=== PATIENT | male | born 1990 | race Caucasian/White ===

== ENCOUNTER 2017-09-08 20:17 | Emergency (ER) | payer MEDICAID ==
[~2017-09-08] VITALS: Ht 182.9 cm; Wt 105.0 kg
[2017-09-08 20:49] VITALS: BP 133/82
[2017-09-09] MEDS ORDERED: METOCLOPRAMIDE 10MG/10 ML UDC PO ONE (01:00)
[2017-09-09] MEDS ORDERED: KETOROLAC 60MG/2ML VIAL IM ONE (01:00)
[2017-09-09 02:13] LABS: *AMPHETAMINES SCREEN URINE PRESUMTIVE POSITIVE (NEGATIVE); *BARBITURATES SCREEN URINE NEGATIVE (NEGATIVE); *BENZODIAZEPINES SCREEN URINE NEGATIVE (NEGATIVE); *COCAINE SCREEN URINE NEGATIVE (NEGATIVE); CANNABINOID URINE SCREEN PRESUMTIVE POSITIVE (NEGATIVE); METHADONE URINE SCREEN NEGATIVE (NEGATIVE); OPIATES URINE SCREEN PRESUMTIVE POSITIVE (NEGATIVE); PHENCYCLIDINE URINE SCREEN NEGATIVE (NEGATIVE)
== END 2017-09-09 02:49 | disposition home or self-care (01) ==
LOC: ER 20:17
DX: R51 Headache (principal); F12.10 Cannabis abuse, uncomplicated; M32.9 Systemic lupus erythematosus, unspecified; F17.200 Nicotine dependence, unspecified, uncomplicated
CPT/HCPCS: 80305; 96372; 99283; J1885; J8597

== ENCOUNTER 2017-10-09 02:18 | Emergency (ER) | payer MEDICAID ==
[~2017-10-09] VITALS: Ht 182.9 cm; Wt 106.0 kg
[2017-10-09 02:36] VITALS: BP 118/55
== END 2017-10-09 07:37 | disposition left against medical advice (07) ==
LOC: ER 02:18
DX: Z53.21 Procedure and treatment not carried out due to patient leaving prior to being seen by health care provider (principal)

== ENCOUNTER 2018-01-05 17:54 | Emergency (ER) | payer MEDICAID ==
[~2018-01-05] VITALS: Ht 180.3 cm; Wt 105.0 kg
[2018-01-05 18:49] LABS: BASOPHILS % 0.3 % (0.0-2.0); EOSINOPHILS % 1.1 % (0.0-5.0); HEMATOCRIT. 35.7 % (42.0-52.0); HEMOGLOBIN. 12.1 g/dL (14.0-18.0); LYMPHOCYTES % 13.4 % (20.0-50.0); MONOCYTES % 7.6 % (2.0-8.0); NEUTROPHILS % 77.6 % (40.0-76.0); PLATELET 335 x1000/uL (130-400); RED BLOOD CELL COUNT 4.46 mill/uL (4.7-6.1); RED CELL DISTRIBUTION WIDTH 14.6 % (11.6-14.6)
[2018-01-05 18:57] LABS: CHLORIDE 102 mEq/L (98-107)
[2018-01-05 19:02] LABS: INR 1.1; PROTHROMBIN TIME 11.8 sec (9.4-11.6)
[2018-01-05 20:33] LABS: CLARITY URINE CLOUDY (CLEAR); COLOR URINE DARK YELLOW (YELLOW); KETONES URINE TRACE (NEGATIVE); LEUKOCYTE ESTERASE URINE 2+ (NEGATIVE); NITRITE URINE NEGATIVE (NEGATIVE); OCCULT BLOOD URINE NEGATIVE (NEGATIVE); PROTEIN URINE TRACE (NEGATIVE); SPECIFIC GRAVITY URINE 1.037 (1.005-1.030)
[2018-01-05 20:47] LABS: *AMPHETAMINES SCREEN URINE PRESUMTIVE POSITIVE (NEGATIVE); *BARBITURATES SCREEN URINE NEGATIVE (NEGATIVE); *BENZODIAZEPINES SCREEN URINE NEGATIVE (NEGATIVE); *COCAINE SCREEN URINE NEGATIVE (NEGATIVE); CANNABINOID URINE SCREEN PRESUMTIVE POSITIVE (NEGATIVE); METHADONE URINE SCREEN NEGATIVE (NEGATIVE); OPIATES URINE SCREEN PRESUMTIVE POSITIVE (NEGATIVE); PHENCYCLIDINE URINE SCREEN NEGATIVE (NEGATIVE)
[2018-01-05] MEDS ORDERED: SODIUM CHLORIDE 0.9% 1,000 ML IV ONE (22:01)
[2018-01-05] MEDS ORDERED: KETOROLAC 30MG/ML VIAL IV STA (22:01)
[2018-01-05] MEDS ORDERED: CEFTRIAXONE 1 G PREMIX 50 ML IV ONE (23:00)
[2018-01-05] MEDS ORDERED: IOHEXOL-300 100 ML BOTTLE ONE (23:53)
[2018-01-06] MEDS ORDERED: LIDOCAINE HCL 1% 20ML VIAL (Pyxis) INJ MC ONE (01:00)
[2018-01-06] MEDS ORDERED: LIDOCAINE HCL/EPINEPHRINE 1%-EPI 1:100,000 30 ML VIAL INFIL ONE (01:00)
[2018-01-06] MEDS ORDERED: LIDOCAINE HCL/EPINEPHRINE 1%-EPI 1:100,000 20 ML VIAL INFIL ONE ×2 (01:00)
[2018-01-06] MEDS ORDERED: LIDOCAINE HCL/EPINEPHRINE 1%-EPI 1:100,000 50 ML VIAL INFIL ONE (01:00)
[2018-01-06] MEDS ORDERED: LIDOCAINE HCL 1%/EPI 1:200,000 30 ML VIAL MC ONE (01:00)
[2018-01-06] MEDS ORDERED: SULFAMETHOXAZOLE/TRIMETHOPRIM 800/160MG TABLET PO ONE (01:00)
[2018-01-06] MEDS ORDERED: HYDROCODONE/ACETAMINOPHEN 5/325MG TABLET PO ONE ×3 (01:00→01:45)
[2018-01-06 02:55] VITALS: BP 112/55
== END 2018-01-06 03:50 | disposition home or self-care (01) ==
LOC: ER 18:25
DX: L03.314 Cellulitis of groin (principal); M32.9 Systemic lupus erythematosus, unspecified; F17.200 Nicotine dependence, unspecified, uncomplicated; N30.00 Acute cystitis without hematuria; B35.6 Tinea cruris; N49.2 Inflammatory disorders of scrotum; F12.10 Cannabis abuse, uncomplicated; Z90.49 Acquired absence of other specified parts of digestive tract
CPT/HCPCS: 10060; 36415; 74177; 80053; 80305; 81003; 83605; 83690; 85025; 85610; 87040; 96361; 96365; 96366; 96375; 99285; J0696; J1885; J3490; J7030; Q9967

== ENCOUNTER 2018-01-08 14:56 | Emergency (ER) | payer MEDICAID ==
[~2018-01-08] VITALS: Ht 180.3 cm; Wt 92.0 kg
[2018-01-08] MEDS ORDERED: KETOROLAC 60MG/2ML VIAL IM ONE (18:30)
[2018-01-08] MEDS ORDERED: CEFTRIAXONE SODIUM 250 MG/VIAL IM ONE (18:30)
[2018-01-08] MEDS ORDERED: LIDOCAINE HCL 1% 20ML VIAL (Pyxis) INJ MC ONE (18:45)
[2018-01-08] MEDS ORDERED: LIDOCAINE HCL/PF 1% 10 MG/ML 5ML VIAL IJ ONE (19:00)
[2018-01-08 19:08] VITALS: BP 117/68
== END 2018-01-08 19:14 | disposition home or self-care (01) ==
LOC: ER 14:56
DX: Z48.00 Encounter for change or removal of nonsurgical wound dressing (principal)
CPT/HCPCS: 96372; 99284; J0696; J1885; J3490

== ENCOUNTER 2019-03-21 16:13 | Emergency (ER) | payer MEDICAID ==
[~2019-03-21] VITALS: Ht 180.3 cm; Wt 100.0 kg
[2019-03-21] MEDS ORDERED: IBUPROFEN 800MG TABLET PO ONE (19:45)
[2019-03-21] MEDS ORDERED: HYDROCODONE/ACETAMINOPHEN 5/325MG TABLET PO ONE (21:00)
[2019-03-21] MEDS ORDERED: SODIUM CHLORIDE 0.9% 1,000 ML IV ONE (21:16)
[2019-03-21] MEDS ORDERED: CLINDAMYCIN 900 MG in DEXTROSE 5% WATER 50 ML IV ONE (21:30)
[2019-03-21 22:58] LABS: BASOPHILS % 0.5 % (0.0-2.0); EOSINOPHILS % 2.2 % (0.0-5.0); HEMATOCRIT. 35.5 % (42.0-52.0); LYMPHOCYTES % 25.2 % (20.0-50.0); MEAN CORPUSCULAR HEMOGLOBIN 26.8 pg (28.0-32.0); MEAN CORPUSCULAR VOLUME 79.5 fL (80.0-94.0); MEAN PLATELET VOLUME 7.5 fl (7.4-10.4); MONOCYTES % 10.1 % (2.0-8.0); PLATELET 305 x1000/uL (130-400); RED BLOOD CELL COUNT 4.47 mill/uL (4.7-6.1); RED CELL DISTRIBUTION WIDTH 14.7 % (11.6-14.6)
[2019-03-21 23:03] LABS: CHLORIDE 105 mEq/L (98-107)
[2019-03-22] MEDS ORDERED: PIPERACILLIN SODIUM/TAZOBACTAM 4.5 G in DEXT 5% WATER 100 ML IV SCH (09:00)
[2019-03-22 09:10] VITALS: BP 118/66
== END 2019-03-22 09:43 | disposition left against medical advice (07) ==
LOC: ER 16:56
DX: M65.841 Other synovitis and tenosynovitis, right hand (principal); F12.10 Cannabis abuse, uncomplicated; M19.90 Unspecified osteoarthritis, unspecified site; L93.2 Other local lupus erythematosus; F17.200 Nicotine dependence, unspecified, uncomplicated
CPT/HCPCS: 36415; 73140; 80053; 83605; 85025; 93005; 96365; 96366; 99284; J2543; J3490; J7030; J7060; Z7610

== ENCOUNTER 2020-02-28 21:37 | Emergency (ER) | payer MEDICAID, OTHER ==
[~2020-02-28] VITALS: Ht 172.7 cm; Wt 78.0 kg
[2020-02-28 22:57] VITALS: BP 123/71
== END 2020-02-28 22:58 | disposition home or self-care (01) ==
LOC: ER 21:37
DX: F11.10 Opioid abuse, uncomplicated (principal); F12.10 Cannabis abuse, uncomplicated
CPT/HCPCS: 82962; 93005; 99283

== ENCOUNTER 2022-07-10 22:08 | Emergency (ER) | payer MEDICAID ==
[~2022-07-10] VITALS: Ht 185.4 cm; Wt 91.0 kg
[2022-07-10] MEDS ORDERED: LIDOCAINE HCL/EPINEPHRINE 1%-EPI 1:100,000 20 ML VIAL INFIL ONE (22:45)
[2022-07-10] MEDS ORDERED: CEFAZOLIN 1000MG PREMIX 50 ML IV ONE (22:45)
[2022-07-10] MEDS ORDERED: MORPHINE SULFATE 4 MG/ML CPJ (NOT FOR IM USE) IV ONE (22:45)
[2022-07-10] MEDS ORDERED: SODIUM CHLORIDE 0.9% 1,000 ML IV ONE (22:45)
[2022-07-10] MEDS ORDERED: TETANUS, DIPHTHERIA, PERTUSSIS VAC/PF 0.5ML (>10YR OLD) IM ONE (22:45)
[2022-07-10] MEDS ORDERED: ONDANSETRON HCL 4MG/2ML INJ IV ONE (22:45)
[2022-07-10] MEDS ORDERED: BACITRACIN ZINC OINT UDPKT TOP ONE (22:45)
[2022-07-10] MEDS ORDERED: LIDOCAINE HCL/EPINEPHRINE 1%-EPI 1:100,000 10 ML VIAL INFIL NR (23:00)
[2022-07-10 23:54] VITALS: BP 136/74
[2022-07-11] MEDS ORDERED: HYDR-4001 MT (02:39)
[2022-07-11] MEDS ORDERED: CEPH500C2 MT (02:39)
[2022-07-11] MEDS ORDERED: BACITRACIN ZINC OINT UDPKT TOP ONE ×2 (02:45)
== END 2022-07-11 03:31 | disposition home or self-care (01) ==
LOC: ER 22:08
DX: S51.812A Laceration without foreign body of left forearm, initial encounter (principal); X99.1XXA Assault by knife, initial encounter; Y93.89 Activity, other specified; Y92.488 Other paved roadways as the place of occurrence of the external cause
CPT/HCPCS: 12002; 73090; 90471; 90715; 96365; 96375; 99291; J0690; J2270; J2405; J3490; J7030

== ENCOUNTER 2024-03-28 10:18 | Emergency (ER) | payer BC, MEDICAID ==
[~2024-03-28] VITALS: Ht 172.7 cm; Wt 91.0 kg
[~2024-03-28 10:18] MED LIST: CEPH500C2 MT; HYDR-4001 MT
[2024-03-28 10:22] VITALS: O2SAT 99
[2024-03-28 11:52] LABS: BASOPHILS % 0.5 % (0.0-2.0); DIFFERENTIAL COMMENT 0; EOSINOPHILS % 0.9 % (0.0-5.0); HEMATOCRIT. 32.3 % (42.0-52.0); HEMOGLOBIN. 10.6 g/dL (14.0-18.0); MEAN CORPUSCULAR HGB CONC 32.8 g/dL (31.0-37.0); MEAN CORPUSCULAR VOLUME 79.4 fL (80.0-94.0); MEAN PLATELET VOLUME 7.2 fl (7.4-10.4); MONOCYTES % 9.6 % (2.0-8.0); PLATELET 301 x1000/uL (130-400); RED BLOOD CELL COUNT 4.08 mill/uL (4.7-6.1); RED CELL DISTRIBUTION WIDTH 14.3 % (11.6-14.6); WHITE BLOOD COUNT 7.3 x1000/uL (4.5-11.0)
[2024-03-28] MEDS: TETANUS, DIPHTHERIA, PERTUSSIS VAC/PF 0.5ML (>10YR OLD) IM ONE (11:56)
[2024-03-28] MEDS: BACITRACIN ZINC OINT UDPKT TOP ONE (11:57)
[2024-03-28] MEDS: LIDOCAINE HCL/PF 1% 10 MG/ML 5ML VIAL INFIL ONE (11:57)
[2024-03-28 12:02] LABS: CHLORIDE 106 mEq/L (98-107); POTASSIUM 3.9 mEq/L (3.5-5.1); SODIUM 137 mEq/L (136-145)
[2024-03-28 12:03] LABS: CALCIUM 8.4 mg/dL (8.7-10.4); CARBON DIOXIDE 25 mEq/L (21-32)
[2024-03-28 12:08] LABS: CREATININE 0.7 mg/dL (0.6-1.3); GLUCOSE 107 mg/dL (70-105); UREA NITROGEN BLOOD 17 mg/dL (9-23)
[2024-03-28 12:10] LABS: AMMONIA 32 uMol/L (<32)
[2024-03-28 12:11] LABS: ETHANOL BLOOD < 10 mg/dL (<10)
[2024-03-28] MEDS ORDERED: AMOX1TAB16 MT (13:14)
[2024-03-28 14:06] VITALS: BP 128/77; PULSE 78; RESP 18; TEMP 97.9
== END 2024-03-28 14:28 | disposition home or self-care (01) ==
LOC: ER 10:18
DX: S61.213A Laceration without foreign body of left middle finger without damage to nail, initial encounter (principal); R41.82 Altered mental status, unspecified; F11.10 Opioid abuse, uncomplicated; X58.XXXA Exposure to other specified factors, initial encounter; Y93.89 Activity, other specified; Y92.89 Other specified places as the place of occurrence of the external cause; Y99.8 Other external cause status
CPT/HCPCS: 80048; 80320; 82140; 85025; 36415; 73130; 70450; 90715; 93005; 12002; 90471; 99285; J3490; Z7610; G0480